=== PATIENT | male | born 1960 | race Caucasian/White ===

== ENCOUNTER 2021-02-14 20:00 | Emergency (ER) | payer OTHER ==
[~2021-02-14] VITALS: Ht 177.8 cm; Wt 70.8 kg
--- NOTE | 2021-02-14 20:00 | NUR ---
HEAVEN FROM HOME FOR C/O GENRALIZED WEAKNESS AND AMS. REPORTED FAILURE TO THRIVE AND INABILITY TO TAKE CARE OF SELF. PT WAS ASSISTED TO BED 3 ER, WS PLACED ON AM ONITOR ,AWAITING FOR MD'S EVAL
[2021-02-14] MEDS ORDERED: IV NS 0.9% 1,000 ML BAG IV ONE (21:00)
[2021-02-14 21:01] LABS: BASOPHILS # (AUTO) 0.1 K/uL (0.0-0.2); BASOPHILS % (AUTO) 0.6 % (0.0-2.0); EOSINOPHILS % (AUTO) 0.2 % (0.0-6.0); HEMATOCRIT 45 % (39-51); HEMOGLOBIN 15.4 g/dL (13.5-17.5); LYMPHOCYTES # (AUTO) 3.4 K/uL (0.8-4.8); LYMPHOCYTES % (AUTO) 19.2 % (20.0-44.0); MEAN CORPUSCULAR HGB CONC 34 g/dl (31.0-36.0); MEAN CORPUSCULAR VOLUME 88 fL (80-96); MONOCYTES # (AUTO) 1.4 K/uL (0.1-1.30); NEUTROPHILS # (AUTO) 12.7 K/uL (1.8-8.9); PLATELET COUNT (AUTO) 337 K/uL (150-450); RED BLOOD CELL COUNT(AUTO) 5.09 MIL/uL (4.5-6.0); WHITE BLOOD COUNT (AUTO) 17.6 K/uL (4.3-11.0)
[2021-02-14 21:08] LABS: CREATININE 1.5 mg/dL (0.6-1.3)
[2021-02-14 21:11] LABS: MAGNESIUM 1.6 mg/dL (1.8-2.4)
[2021-02-14 21:14] LABS: ALBUMIN 3.3 g/dL (3.4-5.0); BILIRUBIN,DIRECT 0.1 mg/dL (0.0-0.2); BILIRUBIN,TOTAL 0.5 mg/dL (0.2-1.0); TOTAL PROTEIN, SERUM 7.5 g/dL (6.4-8.2)
--- NOTE | 2021-02-14 21:19 | NUR ---
COVID SWAB COLLECTE AND SESNT TO LAB
[2021-02-14 21:29] LABS: ALCOHOL, BLOOD < 3 mg/dL (0-0)
[2021-02-14 21:30] LABS: ACETAMINOPHEN 0 ug/ml (10-30)
[2021-02-14] MEDS ORDERED: ENOXAPARIN SODIUM 80 MG/0.8 ML DISP.SYRIN SQ ONE (21:30)
[2021-02-14] MEDS ORDERED: IV NS 0.9% 1,000 ML IV ONE (21:30)
--- NOTE | 2021-02-14 21:36 | NUR ---
CALLED [facility] AND PAGED VET ASSISTANT DR ISAAC NARVAEZ
[2021-02-14] MEDS ORDERED: ENOXAPARIN SODIUM 30 MG/0.3 ML DISP.SYRIN ONE (21:39)
[2021-02-14] MEDS ORDERED: ENOXAPARIN SODIUM 40 MG/0.4 ML DISP.SYRIN SQ ONE (21:39)
[2021-02-14 21:43] LABS: THYROID STIMULATING HORMONE 0.075 uIU/mL (0.358-3.74)
[2021-02-14 22:07] LABS: SERUM AMMONIA 7 umol/L (11-32)
[2021-02-14] MEDS ORDERED: PIPERACILLIN /TAZOBACTAM 3.375 G in IV D5W 50 ML IV ONE (22:30)
[2021-02-14] MEDS ORDERED: VANCOMYCIN HCL 1.25 GM in IV D5W 260 ML IV ONE (22:30)
[2021-02-14] MEDS ORDERED: VANCOMYCIN 1 GM VIAL ONE (22:45)
[2021-02-14] MEDS ORDERED: PIPERACILLIN /TAZOBACTAM 3.375 G VIAL IV ONE (22:45)
--- NOTE | 2021-02-14 22:50 | NUR ---
PER DR ORTIZ OK TO ADMINISTER ATBs WITHOUT DRAWING BLOOD CULTURE
[2021-02-14 22:51] LABS: BILIRUBIN,URINE LARGE (NEGATIVE); COLOR,URINE YELLOW (YELLOW); LEUKOCYTE ESTERASE ,URINE Negative (NEGATIVE); NITRITE, URINE Negative (NEGATIVE); PROTEIN,URINE >=300 mg/dl (NEGATIVE); UGLUCOSE Negative (NEGATIVE)
[2021-02-14] MEDS ORDERED: VANCOMYCIN HCL 1 GM in IV D5W 260 ML IV ONE (23:30)
[2021-02-14 23:40] LABS: BACTERIA,URINE None seen /HPF (None Seen); HYALINE CASTS, URINE Few /LPF (None Seen); RBC,URINE 0-2 /HPF (0-2); SQUAMOUS EPITHELIAL CELL,UR None Seen /HPF (None Seen); URINE AMORPHOUS PHOSPHATES Moderate /HPF (None Seen); WBC,URINE 0-2 /HPF (0-3)
[2021-02-14 23:41] LABS: MUCUS,URINE Rare /LPF (None Seen)
--- NOTE | 2021-02-15 00:08 | NUR ---
CALL FROM [facility]. PT ACCEPTED TO [facility] ER BY DR GARCIA. # FOR REPORT [phone]. [facility] ETA [phone]
[2021-02-15 00:19] VITALS: BP 141/57
--- NOTE | 2021-02-15 00:29 | NUR ---
[facility] AT BED SIDE TO MANAGER USER EXPERIENCE THE PT. REPORTE GIVEN TO FRED
--- NOTE | 2021-02-15 00:32 | NUR ---
pt was transferred to [facility] via gurney under ACLS
== END 2021-02-15 00:32 | disposition short-term general hospital (02) ==
LOC: ER 20:03
DX: I21.4 Non-ST elevation (NSTEMI) myocardial infarction (principal); R62.7 Adult failure to thrive; R53.1 Weakness; D72.829 Elevated white blood cell count, unspecified; N17.9 Acute kidney failure, unspecified; Z86.73 Personal history of transient ischemic attack (TIA), and cerebral infarction without residual deficits; E11.9 Type 2 diabetes mellitus without complications; Z20.822 Contact with and (suspected) exposure to COVID-19; I67.2 Cerebral atherosclerosis
CPT/HCPCS: 36415; 70450; 71045; 80048; 80076; 80143; 80307; 80320; 81001; 82140; 83605; 83690; 83735; 84439; 84443; 84484; 85025; 87081; 87426; 93005; 96361; 96365; 96367; 96372; 99291; C9803; J1650 ×2; J2543; J7030 ×2; G0480; J3370; J7060